=== PATIENT | male | born 1960 | race Caucasian/White ===

== ENCOUNTER 2018-07-10 10:11 | Day surgery (SDC) | payer BC ==
[2018-07-09 12:10] VITALS: BMI 29.7
[2018-07-10 12:57] VITALS: TEMP 98.8
[2018-07-10 14:20] VITALS: BP 126/69; PULSE 69
== END 2018-07-10 13:45 | disposition home or self-care (01) ==
LOC: JASU-ENDO 10:11
PROVIDERS: ATTEND Internal Medicine Gastroenterology
PROC: 0DJD8ZZ Inspection of Lower Intestinal Tract, Via Natural or Artificial Opening Endoscopic (ICD-10-PCS; principal; 2018-07-10 11:00)
DX: Z12.11 Encounter for screening for malignant neoplasm of colon (principal); Z83.71 Family history of colonic polyps

== ENCOUNTER 2021-07-13 14:32 | Observation (INO) | payer BC ==
[2021-07-13] MEDS ORDERED: ACETAMINOPHEN 1000 MG/100 ML VIAL IVPB ONE (15:10)
[2021-07-13] MEDS ORDERED: ASPIRIN 81 MG CHEWABLE TABLETS PO ONE (15:11)
[2021-07-13] MEDS ORDERED: ASPIRIN 81 MG CHEWABLE TABLETS ONE (15:13)
[2021-07-13] MEDS ORDERED: ACETAMINOPHEN INJECTION 100 ML IVPB ONE (15:13)
[2021-07-13 15:32] LABS: BASO % 1.2 % (0-2.0); EOS % 2.1 % (0-4.5); HEMATOCRIT 39.7 % (35.4-49); HEMOGLOBIN 13.8 GM/dL (11.7-16.9); LYMPH % 32.7 % (8-40); MCHC 34.9 g/dl (32.0-35.9); MEAN PLT VOLUME 7.3 fl (7.5-11.1); MONO % 8.2 % (3.8-10.2); NEUT % 55.8 % (42.8-82.8); PLATELET COUNT 196 10^3/uL (134-434); RBC 4.61 M/mm3 (4.00-5.60); RDW 13.5 % (11.9-15.9); WHITE BLOOD COUNT 5.7 K/mm3 (4.0-10.0)
[2021-07-13 15:49] LABS: CHLORIDE 100 mmol/L (98-107); SODIUM 137 mmol/L (136-145)
[2021-07-13 15:51] LABS: CALCIUM 8.4 mg/dL (8.5-10.1)
[2021-07-13 15:53] LABS: ALBUMIN 3.8 g/dl (3.4-5.0); ANION GAP 8 MMOL/L (8-16); CO2 30 mmol/L (21-32); GLUCOSE,RANDOM 124 mg/dL (74-106)
[2021-07-13 15:56] LABS: CREATININE 0.9 mg/dL (0.55-1.3); SGOT/AST 30 U/L (15-37); SGPT/ALT 51 U/L (13-61)
[2021-07-13 15:57] LABS: BILIRUBIN,TOTAL 0.3 mg/dL (0.2-1); TOT PROT 7.6 g/dl (6.4-8.2)
[2021-07-13 15:58] LABS: ALK PHOS 85 U/L (45-117)
[2021-07-13] MEDS ORDERED: POTASSIUM CHLORIDE TABS 20 MEQ TABLET.ER (FP) PO ONE ×2 (16:02→16:48)
[2021-07-13 18:07] LABS: MAGNESIUM 2.2 mg/dL (1.8-2.4)
[2021-07-13 20:40] LABS: N-TERMINAL BNP 27.9 pg/ml (5-125)
[2021-07-13 21:38] VITALS: BMI 30.9
[2021-07-14 08:32] LABS: BLOOD UREA NITROGEN 20.3 mg/dL (7-18); CALCIUM 8.5 mg/dL (8.5-10.1)
[2021-07-14 08:37] LABS: CREATININE 0.8 mg/dL (0.55-1.3)
[2021-07-14 08:42] LABS: MAGNESIUM 2.3 mg/dL (1.8-2.4)
[2021-07-14] MEDS ORDERED: POTASSIUM CHLORIDE TABS 20 MEQ TABLET.ER (FP) PO ONE (09:29)
[2021-07-14] MEDS ORDERED: LOSARTAN POTASSIUM 50 MG TABLET PO SCH (10:00)
[2021-07-14] MEDS ORDERED: amLODIPine BESYLATE 5 MG TABLET (FP) PO SCH (10:00)
[2021-07-14] MEDS ORDERED: ASPIRIN COATED 81 MG TABLET.EC PO SCH (10:00)
[2021-07-14] MEDS ORDERED: HYDROCHLOROTHIAZIDE 25 MG TABLET (FP) PO SCH (10:00)
[2021-07-14 10:03] VITALS: PULSE 66
[2021-07-14 14:05] VITALS: BP 134/75; TEMP 98.5
== END 2021-07-14 18:10 | disposition home or self-care (01) ==
LOC: JER 14:32 → UNDOADMOB 16:53 → INTOOBSV 16:53 → JERBED 16:53 → J4W 20:42
PROVIDERS: ADMIT Internal Medicine; ATTEND Nurse Practitioner Acute Care
PROC: 3E033NZ Introduction of Analgesics, Hypnotics, Sedatives into Peripheral Vein, Percutaneous Approach (ICD-10-PCS; principal; 2021-07-13)
DX: R07.9 Chest pain, unspecified (principal); E11.9 Type 2 diabetes mellitus without complications; Z87.891 Personal history of nicotine dependence; E66.9 Obesity, unspecified; Z68.30 Body mass index [BMI] 30.0-30.9, adult; I10 Essential (primary) hypertension; E78.5 Hyperlipidemia, unspecified; R06.02 Shortness of breath; R01.1 Cardiac murmur, unspecified
CPT/HCPCS: 36415; 71045-TC-FY; 76700-TC; 80048; 80053; 83735; 83880; 84484; 85025; 93005; 93010; 96374; 99285-25; C9803; G0378; J0131; U0003; U0005

== ENCOUNTER 2022-03-04 13:36 | Emergency (ER) | payer OTHER, BC ==
[2022-03-04 14:14] VITALS: BP 129/64; PULSE 68; TEMP 98; BMI 31.1
[2022-03-04] MEDS ORDERED: KETOROLAC TROMETHAMINE 30 MG/1 ML VIAL IM ONE (16:12)
[2022-03-04] MEDS ORDERED: CYCLOBENZAPRINE HCL 10 MG TABLET (FP) PO ONE (16:12)
[2022-03-04] MEDS ORDERED: KETOROLAC TROMETHAMINE 30 MG/1 ML VIAL ONE (16:15)
[2022-03-04] MEDS ORDERED: CYCLOBENZAPRINE HCL 10 MG TABLET (FP) ONE (16:15)
== END 2022-03-04 17:02 | disposition home or self-care (01) ==
LOC: JERFT 13:36
PROC: 3E023GC Introduction of Other Therapeutic Substance into Muscle, Percutaneous Approach (ICD-10-PCS; principal; 2022-03-04)
DX: M25.511 Pain in right shoulder (principal)
CPT/HCPCS: 73030-TC-RT-FY; 99284-25